=== PATIENT | female | born 1960 | race Caucasian/White ===

== ENCOUNTER 2024-06-01 10:44 | Inpatient (IN) ==
[2024-06-01 12:11] LABS: Hematocrit 26.7 % (35-45); Hemoglobin 9.4 g/dL (11.5-14.3); Mean Corpuscular Hemoglobin 40.5 pg (27-33); Mean Corpuscular Hgb Conc 35.1 g/dL (31-36); Mean Corpuscular Volume 115.3 fL (80-97); Red Blood Count 2.32 10^6/uL (3.63-4.92); Red Cell Distribution Width 16.4 % (12-17); White Blood Count 7.3 10^3/uL (3.8-11.8)
[2024-06-01 12:52] LABS: ALT 41 U/L (7-52); Albumin 2.8 g/dL (3.2-5.2); Albumin/Globulin Ratio 0.6 (1-3); Alkaline Phosphatase 206 U/L (35-149); Anion Gap 13 mmol/L (2-16); Blood Urea Nitrogen 18 mg/dL (6-24); C Reactive Protein 99.37 mg/L (<8.01); CO2 Carbon Dioxide 25 mmol/L (22-32); Calcium 8.5 mg/dL (8.6-10.3); Chloride 91 mmol/L (101-111); Creatinine, Serum 1.29 mg/dL (0.51-0.95); Globulin 4.5 g/dL (2-4); Glucose 91 mg/dL (70-100); Lipase 111 U/L (11.0-82.0); Sodium 129 mmol/L (135-145); Total Bilirubin 12.9 mg/dL (0.2-1.0); Total Protein 7.3 g/dL (6.4-8.9); eGFR CKD-EPI 46.6 (>60)
[2024-06-01 13:26] LABS: ABS Lymphocytes 0.4 10^3/uL (1.0-4.8); ABS Monocytes 0.5 10^3/uL (0.0-0.9); ABS Neutrophils 6.3 10^3/uL (1.5-7.6); Eosinophil % 0.7 %; Lymphocyte % 5.2 %; Mean Platelet Volume 8.4 fL (7.5-11.2); Platelet Count 95 10^3/uL (150-450)
[2024-06-01] MEDS: Iodixanol 320 (CONTRAST) 100 ML SDV IV ONE (13:45)
[2024-06-01 14:18] LABS: AST Redraw 152 U/L (13-39); Potassium Redraw 3.6 mmol/L (3.5-5.0)
[2024-06-01] MEDS: Lactulose 30 ml UDC PO SCH (14:58)
[2024-06-01 15:13] LABS: Direct Bilirubin Redraw 6.1 mg/dL (0.1-0.5)
[2024-06-01 15:32] LABS: Alcohol, S < 13 mg/dL (<13)
[2024-06-01 15:46] LABS: INR 1.87 (0.85-1.14)
[2024-06-01] MEDS ORDERED: LORazepam 2 mg VIAL 1 ml IV PUSH SCH (17:00)
[2024-06-01 17:03] LABS: % Iron Saturation 110 % (15-55); .Transferrin < 75 mg/dL (203-362); Iron 116 ug/dL (50-212); Magnesium 1.7 mg/dL (1.9-2.7); Phosphorus 3.2 mg/dL (2.5-5.0); Total Iron Binding Capacity 105 mcg/dL (250-450); Unsaturated Iron Binding -11 ug/dL
[2024-06-01 17:18] LABS: TSH Ultra Thyroid Stim Horm 2.25 mcIU/mL (0.34-5.60)
[2024-06-01 17:24] LABS: Ferritin 1353.8 ng/mL (11-307)
[2024-06-01 17:30] LABS: Folate 2.93 ng/mL (5.90-24.80)
[2024-06-01 17:31] LABS: Vitamin B12 > 1450 pg/mL (180-914)
[2024-06-01] MEDS: Thiamine 100 MG/ML 2 ml VIAL (200 mg) IM ONE (17:53)
[2024-06-01] MEDS: Magnesium Sulfate 2 gm BAG 2 GM/50 ML BAG IVPB ONE (17:54)
[2024-06-01] MEDS: Multivitamins/Minerals TAB PO SCH (17:54)
[2024-06-01] MEDS: NS 0.9% 1000 ml BAG 1,000 ML IV SCH (18:58)
[2024-06-01] MEDS ORDERED: Zosyn per Pharmacy NOTE FOLLOW UP SCH (19:00)
[2024-06-01] MEDS: Magnesium Sulfate IV 1GM/100ML 1 GM/100 ML BAG IV ONE (19:00)
[2024-06-01] MEDS: Zosyn 3.375 GM IV - ED ONCE IV ONE (20:53)
[2024-06-01] MEDS: Albumin Human 25% 25 GM/100 ML BTL IV SCH (21:16)
[2024-06-01] MEDS: Heparin 5000 UNITS/ML 1 mL VIAL SUBCUT SCH (22:00)
[2024-06-02] MEDS: ZOSYN 3.375 GM Q8H per EXTENDED INFUSION IV SCH (02:18)
[2024-06-02 06:37] LABS: INR 1.97 (0.85-1.14)
[2024-06-02 07:36] LABS: Hematocrit 21.7 % (35-45); Hemoglobin 7.6 g/dL (11.5-14.3); Mean Corpuscular Hemoglobin 40.3 pg (27-33); Mean Corpuscular Hgb Conc 35.1 g/dL (31-36); Mean Platelet Volume 8.5 fL (7.5-11.2); Platelet Count 81 10^3/uL (150-450); Red Blood Count 1.89 10^6/uL (3.63-4.92); Red Cell Distribution Width 16.2 % (12-17); White Blood Count 5.3 10^3/uL (3.8-11.8)
[2024-06-02 07:44] LABS: ABS Eosinophils 0.1 10^3/uL (0.0-0.5); ABS Lymphocytes 0.6 10^3/uL (1.0-4.8); ABS Monocytes 0.4 10^3/uL (0.0-0.9); ABS Neutrophils 4.3 10^3/uL (1.5-7.6); ABS Nucleated RBC 0.01 10^3/ul; Eosinophil % 1.4 %; Lymphocyte % 10.8 %; Nucleated Red Blood Cells % 0.1 %/100WBC (0.0-0.8)
[2024-06-02 07:45] LABS: ALT 32 U/L (7-52); Albumin 3.2 g/dL (3.2-5.2); Albumin/Globulin Ratio 0.9 (1-3); Alkaline Phosphatase 160 U/L (35-149); Anion Gap 11 mmol/L (2-16); Blood Urea Nitrogen 15 mg/dL (6-24); CO2 Carbon Dioxide 24 mmol/L (22-32); Calcium 8.1 mg/dL (8.6-10.3); Chloride 95 mmol/L (101-111); Creatinine, Serum 1.21 mg/dL (0.51-0.95); Globulin 3.5 g/dL (2-4); Glucose 94 mg/dL (70-100); Magnesium 2.4 mg/dL (1.9-2.7); Sodium 130 mmol/L (135-145); Total Protein 6.7 g/dL (6.4-8.9); eGFR CKD-EPI 50.4 (>60)
[2024-06-02 12:30] LABS: Protime (Maddrey) 22.1 seconds (9.5-12.8)
[2024-06-02 13:02] LABS: Body Fluid Total Nucleated 179 /mcL
[2024-06-02 13:48] LABS: Body Fluid Appearance Clear; Body Fluid Color Yellow; Body Fluid Source Peritonial Fluid
[2024-06-02 14:19] LABS: Potassium Redraw 3.4 mmol/L (3.5-5.0)
[2024-06-02] MEDS: Potassium Chlor 20 meq TAB.ER PO ONE (14:36)
[2024-06-02 14:55] LABS: Body Fluid Mono 84 %; Body Fluid Other Cells 16; Body Fluid Total Cells Counted 200
[2024-06-02] MEDS ORDERED: KCL 20 MEQ/100 ML IVPREMIX 20 MEQ/100 ML BAG IV SCH (15:00)
[2024-06-02] MEDS ORDERED: Zosyn per Pharmacy NOTE FOLLOW UP SCH (15:00)
[2024-06-02] MEDS: ZOSYN 3.375 GM x ONE DOSE over 30 miuntes IV (15:46)
[2024-06-02] MEDS ORDERED: ZOSYN 3.375 GM Q8H per EXTENDED INFUSION IV SCH (20:00)
[2024-06-02 21:54] LABS: Urine Appearance Clear; Urine Bilirubin 2+ (Negative); Urine Blood Negative (Negative); Urine Color Dark-Yellow; Urine Glucose Negative (Negative); Urine Ketones Trace (Negative); Urine Nitrite Negative (Negative); Urine Protein Trace (Negative); Urine Specific Gravity 1.032 (1.002-1.030); Urine Urobilinogen 1+ (Negative); Urine pH 5.5 (5.0-8.0)
[2024-06-02 21:57] LABS: Urine Bacteria Absent /HPF (Absent); Urine Red Blood Cell 1+(3-5/hpf) /HPF (0-Trace); Urine Renal Epithelial Cells Present /HPF (Absent); Urine Squamous Epithelial Cell Present /HPF (Absent); Urine Transitional Epithelial Present /HPF (Absent); Urine White Blood Cell 1+(6-10/hpf) /HPF (0-Trace)
[2024-06-03 06:32] LABS: INR 1.9 (0.85-1.14)
[2024-06-03 06:34] LABS: ABS Lymphocytes 0.3 10^3/uL (1.0-4.8); ABS Monocytes 0.2 10^3/uL (0.0-0.9); ABS Neutrophils 6.4 10^3/uL (1.5-7.6); Hematocrit 22.1 % (35-45); Hemoglobin 7.6 g/dL (11.5-14.3); Lymphocyte % 4.3 %; Mean Corpuscular Hemoglobin 40.1 pg (27-33); Mean Corpuscular Hgb Conc 34.7 g/dL (31-36); Mean Corpuscular Volume 115.6 fL (80-97); Mean Platelet Volume 8.7 fL (7.5-11.2); Platelet Count 78 10^3/uL (150-450); Red Blood Count 1.91 10^6/uL (3.63-4.92); Red Cell Distribution Width 15.8 % (12-17)
[2024-06-03 07:21] LABS: Calcium 8.1 mg/dL (8.6-10.3); Creatinine, Serum 1.12 mg/dL (0.51-0.95); Potassium 3.8 mmol/L (3.5-5.0); eGFR CKD-EPI 55.3 (>60)
[2024-06-03 07:54] LABS: Albumin 3.1 g/dL (3.2-5.2); Albumin/Globulin Ratio 0.8 (1-3); Globulin 3.8 g/dL (2-4); Total Protein 6.9 g/dL (6.4-8.9)
[2024-06-03 15:02] LABS: Lactate Dehydrogenase, BF 53 U/L
[2024-06-03 16:36] LABS: Albumin, BF 0.8 g/dL; Glucose, BF 107 mg/dL; Total Protein, BF 1.7 g/dL
[2024-06-04 06:15] LABS: INR 1.91 (0.85-1.14)
[2024-06-04 06:21] LABS: Hematocrit 20.3 % (35-45); Hemoglobin 7.3 g/dL (11.5-14.3); Mean Corpuscular Hemoglobin 41.1 pg (27-33); Mean Corpuscular Hgb Conc 35.8 g/dL (31-36); Mean Corpuscular Volume 114.8 fL (80-97); Mean Platelet Volume 8.5 fL (7.5-11.2); Platelet Count 77 10^3/uL (150-450); Red Blood Count 1.77 10^6/uL (3.63-4.92); Red Cell Distribution Width 16.4 % (12-17); White Blood Count 7.1 10^3/uL (3.8-11.8)
[2024-06-04 06:31] LABS: Albumin 2.9 g/dL (3.2-5.2); Albumin/Globulin Ratio 0.8 (1-3); Creatinine, Serum 0.95 mg/dL (0.51-0.95); Globulin 3.5 g/dL (2-4); Potassium 3.6 mmol/L (3.5-5.0); Total Bilirubin 10.1 mg/dL (0.2-1.0); Total Protein 6.4 g/dL (6.4-8.9); eGFR CKD-EPI 67.3 (>60)
[2024-06-04] MEDS ORDERED: Naloxone 0.4 mg VIAL 0.4 mg/ml 1 ml VIAL IV PRN (10:49)
[2024-06-04] MEDS ORDERED: NS 0.45% 1000 ml BAG 1,000 ML IV SCH (11:00)
[2024-06-04] MEDS ORDERED: Propofol 10 MG/ML 20 ML BTL ONE (11:35)
[2024-06-04] MEDS: Lactated Ringers 1000 ml BAG 1,000 ML IV SCH (14:04)
[2024-06-04] MEDS: Buffered Lidocaine 1% SYRIN 1 ml INTRADERM ONE (14:04)
[2024-06-04 17:27] LABS: Body Fluid Bilirubin 2.7 mg/dL
[2024-06-05 06:38] LABS: INR 1.96 (0.85-1.14)
[2024-06-05 06:42] LABS: Hematocrit 21.5 % (35-45); Hemoglobin 7.7 g/dL (11.5-14.3); Mean Corpuscular Hemoglobin 41.6 pg (27-33); Mean Corpuscular Hgb Conc 35.9 g/dL (31-36); Mean Corpuscular Volume 115.8 fL (80-97); Mean Platelet Volume 8.2 fL (7.5-11.2); Platelet Count 76 10^3/uL (150-450); Red Blood Count 1.86 10^6/uL (3.63-4.92); Red Cell Distribution Width 16.2 % (12-17)
[2024-06-05 06:46] LABS: Albumin 2.7 g/dL (3.2-5.2); Albumin/Globulin Ratio 0.8 (1-3); Calcium 7.9 mg/dL (8.6-10.3); Creatinine, Serum 1.06 mg/dL (0.51-0.95); Globulin 3.3 g/dL (2-4); Potassium 3.5 mmol/L (3.5-5.0)
[2024-06-05] MEDS: Potassium Chlor 20 meq TAB.ER PO ONE (09:31)
[2024-06-06 09:34] VITALS: BP 92/60
== END 2024-06-06 15:10 | disposition home or self-care (01) | DRG 280 ==
LOC: ED 10:44 → EDHOLD 10:44 → SUATTDRO 06-02 10:08 → MED 06-02 11:39
PROVIDERS: ADMIT Internal Medicine; ATTEND Internal Medicine
PROC: O.GIEGD (2024-06-04 10:50)